=== PATIENT | female | born 1975 | race Caucasian/White ===

== ENCOUNTER → 2019-06-01 | Outpatient (CLI) | payer OTHER | END | disposition home or self-care (01) | LOC: LAB 16:17 → LAB SHORT 16:17 | DX: L08.9 Local infection of the skin and subcutaneous tissue, unspecified (principal) | CPT/HCPCS: 87070; 87077; 87147; 87186; 87205 ==

== ENCOUNTER → 2022-04-04 | Outpatient (CLI) | payer OTHER | END | disposition home or self-care (01) | LOC: LAB SHORT 16:45 | DX: J02.9 Acute pharyngitis, unspecified (principal) | CPT/HCPCS: 87081 ==

== ENCOUNTER 2024-05-13 06:32 | Day surgery (SDC) | payer OTHER ==
[2024-05-13] VITALS (9 sets, daily range): BP systolic 112–142; BP diastolic 62–98
[~2024-05-13] VITALS: Ht 172.7 cm; Wt 168.1 kg
[~2024-05-13 06:32] MED LIST: CARV25 PO; CeFAZolin Sodium 2,000 MG in NS 100 ML IV SCH; CeFAZolin Sodium 3,000 MG in NS 100 ML IV SCH; GEMF600 PO; GLIP5 PO; Lactated Ringer's 1,000 ML IV SCH; Lisinopril-Hct1 EAC4 PO; METF500 PO; TOUJEO MAX300 UNIT/2 SQ; TRULICITY0.75 MG/01 SQ
--- NOTE | 2024-05-13 07:00 | NUR ---
Ambulatory in Day Surgery History, Chart, Medications and Allergies reviewed before start of procedure.Lungs clear T/O to Auscultation. Patient confirms NPO status and agrees with scheduled surgery. Patient reports completing Chlorhexadine shower X2 prior to admission to hospital.Surgical site prepped with 2% Chlorhexidine cloth wipe. Patient States Post-Procedure ride home has been arranged.
[2024-05-13] MEDS ORDERED: Lidocaine 2% 5 ML SDV ONE (07:10)
[2024-05-13] MEDS ORDERED: Bupivacaine 0.5% HCl 5 MG/ML 30MLVIAL ONE (07:10)
[2024-05-13] MEDS ORDERED: propofoL 20 ML IV ONE (07:29)
[2024-05-13] MEDS ORDERED: FentaNYL Citrate 50 MCG/ML 2 ML Injection ONE (07:29)
--- NOTE | 2024-05-13 07:30 | NUR ---
PT GLASSES GIVEN TO HER SPOUSE CHARITO.
[2024-05-13] MEDS ORDERED: Lidocaine HCl 2% 20 ML MDV ONE (07:59)
[2024-05-13] MEDS ORDERED: Labetalol HCL 5 MG/ML 4ML Injection (Single Dose) ONE (07:59)
[2024-05-13] MEDS ORDERED: Ketorolac Tromethamine 30mg Vial ONE (08:00)
[2024-05-13] MEDS ORDERED: Ondansetron HCl 2 MG / ML 2ML Vial ONE (08:00)
[2024-05-13] MEDS ORDERED: Dexamethasone Sod Phos 10 MG/ML 1ML VIAL ONE (08:00)
[2024-05-13] MEDS ORDERED: HYDROcodone 5-APAP 325 TAB PO PRN (08:25)
--- NOTE | 2024-05-13 09:07 | NUR ---
DISCHARGE NOTE PT A&OX4, BREATHING RA, VSS, TOLERATING PO FLUIDS, DECLINED PO PAIN PILL, NO NAUSEA. Patient up to Ambulate independently. Gait steady. Discharge instructions reviewed with patient. Patient verbalizes understanding. Copy given to patient to take home. Dressing to procedure site clean, dry, intact with no visible drainage, swelling, erythema or bruising noted.CAP REFILL BRISK TO TOES OF OPERATIVE FOOT, PT ABLE TO FEEL AND WIGGLE THEM. COLOR IS PWD. Discharged via wheelchair to private car for ride home.
== END 2024-05-13 09:00 | disposition home or self-care (01) ==
LOC: ORSCMMR 06:32 → ORD 07:30 → ORSCMMR 07:30 → ORD 09:45 → ORSCMMR 09:45
PROVIDERS: Podiatrist Foot & Ankle Surgery
PROC: 0Y6U0Z1 Detachment at Left 3rd Toe, High, Open Approach (ICD-10-PCS; principal; 2024-05-13 07:30)
DX: E11.621 Type 2 diabetes mellitus with foot ulcer (principal); L97.529 Non-pressure chronic ulcer of other part of left foot with unspecified severity; L03.032 Cellulitis of left toe; M86.9 Osteomyelitis, unspecified; I10 Essential (primary) hypertension; G47.33 Obstructive sleep apnea (adult) (pediatric); Z79.84 Long term (current) use of oral hypoglycemic drugs; Z79.4 Long term (current) use of insulin; Z79.899 Other long term (current) drug therapy; Z87.891 Personal history of nicotine dependence
CPT/HCPCS: 82947; 88305; 88311; J0690; J1100; J1885; J2405; J2704; J3010; J7120

== ENCOUNTER → 2024-12-10 | Outpatient (CLI) | payer OTHER ==
[~2024-12-10] MED LIST changes: -CeFAZolin Sodium 2,000 MG in NS 100 ML IV SCH; -CeFAZolin Sodium 3,000 MG in NS 100 ML IV SCH; -Lactated Ringer's 1,000 ML IV SCH
== END ==
LOC: LAB 17:09 → LAB SHORT 17:09
DX: N28.89 Other specified disorders of kidney and ureter (principal)
CPT/HCPCS: 87077; 87086; 87186

== ENCOUNTER → 2024-12-21 | Outpatient (CLI) | payer OTHER | LOC: LAB SHORT 08:20 → LAB 08:20 | DX: L03.115 Cellulitis of right lower limb (principal) | CPT/HCPCS: 87070; 87075; 87205 ==

== ENCOUNTER → 2024-12-25 | Outpatient (CLI) | payer OTHER | END | disposition home or self-care (01) | LOC: LAB SHORT 17:43 → LAB 17:43 | DX: L03.115 Cellulitis of right lower limb (principal) | CPT/HCPCS: 87070; 87075; 87205 ==

== ENCOUNTER 2025-01-08 04:57 | Day surgery (SDC) | payer OTHER | END 2025-01-08 23:00 | disposition home or self-care (01) | LOC: WOUND 04:57 | DX: E11.622 Type 2 diabetes mellitus with other skin ulcer (principal); L97.212 Non-pressure chronic ulcer of right calf with fat layer exposed; E11.65 Type 2 diabetes mellitus with hyperglycemia; I87.2 Venous insufficiency (chronic) (peripheral); I10 Essential (primary) hypertension; Z79.4 Long term (current) use of insulin; Z79.84 Long term (current) use of oral hypoglycemic drugs; Z87.891 Personal history of nicotine dependence | CPT/HCPCS: G0463 ==

== ENCOUNTER 2025-07-06 06:04 | Day surgery (SDC) | payer OTHER ==
[~2025-07-06] VITALS: Ht 172.7 cm; Wt 164.0 kg
[2025-07-06] VITALS (9 sets, daily range): BP systolic 101–130; BP diastolic 58–88
[~2025-07-06 06:04] MED LIST changes: +ENSKYCE 28 TAB1 EACH PO; +RYBELSUS14 MG PO
[2025-07-06] MEDS ORDERED: Ondansetron HCl 2 MG / ML 2ML Vial ONE (06:43)
[2025-07-06] MEDS ORDERED: Flumazenil 0.1 MG / ML 5ML Vial ONE (06:43)
[2025-07-06] MEDS ORDERED: Naloxone HCl 0.4MG / ML 1ML Vial ONE (06:43)
[2025-07-06] MEDS ORDERED: FentaNYL Citrate 50 MCG/ML 2 ML Injection ONE (06:44)
[2025-07-06] MEDS ORDERED: NS 1,000 ML IV ONE ×2 (06:44)
[2025-07-06] MEDS ORDERED: Midazolam HCl 1MG / ML 2ML Vial ONE (06:44)
[2025-07-06] MEDS ORDERED: Phenylephrine HCl 100 MCG/ML-NS 10MLSYR (1MG/10ML) ONE (06:44)
--- NOTE | 2025-07-06 11:09 | NUR ---
UP TO BEDSIDE COMMODE WITH SBA, OKAYED WITH VOIDED MODERATE AMOUNT OF CLEAR YELLOW URINE. DRESSING A PROCEDURE SITE WITH MINIMAL AMOUNT OF BLOODY DRAINAGE NOTED. PT OFFERS NO C/O'S.
--- NOTE | 2025-07-06 12:00 | NUR ---
Pt has been resting comfortably. Procedure site without changes.
--- NOTE | 2025-07-06 12:58 | NUR ---
PT AMBULATES TO RESTROOM AND BACK WITHOUT DIFF. VSS. NADN. PT IV DC'D. CATH INTACT. PT R SIDED FLANK INCISION REMAINS C/D/I. NO BLEEDING NOTED. VSS. PT AND S/O VERBALIZES UNDERSTANDING WRITTEN AND VERBAL INSTRUCTIONS. DENIES QUESITONS OR CONCERNS. PT DC TO HOME VIA S/O BY WC
== END 2025-07-06 13:00 | disposition home or self-care (01) ==
LOC: MHTC 06:04 → CT 07:00 → MHTC 13:00
DX: C64.2 Malignant neoplasm of left kidney, except renal pelvis (principal); E11.9 Type 2 diabetes mellitus without complications; I10 Essential (primary) hypertension; E66.01 Morbid (severe) obesity due to excess calories; Z68.43 Body mass index [BMI] 50.0-59.9, adult; Z87.891 Personal history of nicotine dependence; Z79.84 Long term (current) use of oral hypoglycemic drugs; Z79.899 Other long term (current) drug therapy
CPT/HCPCS: 50593; 77013; 99152; 99153; C2618; J2250; J2310; J2312; J2371; J2405; J3010; J7030; Q9967